=== PATIENT | female | born 1970 | race Caucasian/White ===

== ENCOUNTER → 2016-12-29 | Outpatient (CLI) | payer OTHER ==
[~2016-12-29] MED LIST: ALL180 PO; MULT-506 PO; OMEG10007 PO; TRIA0.1C20 TOP
--- NOTE | 2016-12-30 10:58 | MAMMOGRAPHY REPORT ---
BILATERAL DIGITAL SCREENING MAMMOGRAM TOMOSYNTHESIS WITH CAD: 12/29/2016 CLINICAL HISTORY: Routine screening. Patient has no complaints. TECHNIQUE: Breast tomosynthesis in addition to standard 2D mammography was performed. Current study was also evaluated with a Computer Aided Detection (CAD) system. COMPARISON: Comparison is made to exams dated: 08/24/2015 mammogram, 02/15/2013 mammogram, 02/24/2014 m ammogram, 02/15/2013 ultrasound, 08/28/2011 mammogram, and 06/17/2010 mammogram - [facility]. BREAST COMPOSITION: The tissue of both breasts is heterogeneously dense, which may obscure small ma sses. FINDINGS: There are scattered stable benign-appearing microcalcifications in the breasts. No suspic ious spicular dated or regular mass, architectural distortion or cluster of suspicious microcalcific ations is seen. IMPRESSION: ACR BI-RADS CATEGORY 2: BENIGN There is no mammographic evidence of malignancy. A 1 year screening mammogram is recommended. The p atient will receive written notification of the results. Approximately 10% of breast cancers are not detected with mammography. A negative mammographic repor t should not delay biopsy if a clinically suggestive mass is present. Silvina Victoria M.D. ay/:12/29/2016 17:54:13 Liquor Establishment Manager: Keo DOWELL(Jocelyne)(M), [facility] letter sent: Normal 1/2 BI-RADS Code: ACR BI-RADS Category 2: Benign
== END | disposition home or self-care (01) ==
LOC: C.MAMM 15:25
PROVIDERS: ATTEND Family Medicine
DX: Z12.31 Encounter for screening mammogram for malignant neoplasm of breast (principal)

== ENCOUNTER → 2017-02-02 | Outpatient (CLI) | payer OTHER | END | disposition home or self-care (01) | LOC: C.PAPS 16:53 | PROVIDERS: ATTEND Family Medicine | DX: Z12.4 Encounter for screening for malignant neoplasm of cervix (principal); R87.612 Low grade squamous intraepithelial lesion on cytologic smear of cervix (LGSIL) ==

== ENCOUNTER → 2017-03-31 | Outpatient (CLI) | payer OTHER ==
[2017-03-31 09:33] LABS: BASO % 0.4 %; BASO ABS # 0.02 K/uL (0-0.2); COMPLETE YES; EOS % 1.5 %; HEMATOCRIT 42.3 % (37-47); IG% 0.4 %; LYMPH % 24.4 %; LYMPH ABS # 1.26 K/uL (1.2-3.4); MEAN CELL VOLUME 88.5 fL (80-100); MEAN CORPUSCULAR HEMOGLOBIN 29.9 pg (25-34); MEAN CORPUSCULAR HGB CONC 33.8 g/dl (32-36); MEAN PLATELET VOLUME 9.8 fL (7.4-10.4); MONO % 10.1 %; NEUT % 63.2 %; PLATELET COUNT 323 K/uL (130-400); RED BLOOD COUNT 4.78 M/uL (4.2-5.4); WHITE BLOOD COUNT 5.17 K/uL (4.8-10.8)
[2017-03-31 10:13] LABS: LYME DISEASE AB IGG NEG (NEG); LYME DISEASE AB IGM NEG (NEG)
== END | disposition home or self-care (01) ==
LOC: C.LAB 08:24
PROVIDERS: ATTEND Physician Assistant
DX: R53.81 Other malaise (principal); R53.83 Other fatigue; M79.642 Pain in left hand; W57.XXXA Bitten or stung by nonvenomous insect and other nonvenomous arthropods, initial encounter

== ENCOUNTER → 2017-07-14 | Outpatient (CLI) | payer OTHER ==
[2017-07-17 12:50] LABS: HERPES SIMPLEX CULT SOURCE GENITAL-LABIA MAJORA; HERPES SIMPLEX VIRUS CULT ISOLATED (NOT ISOLATED)
[2017-07-21 10:16] LABS: HSVTYPE2REFLEX ONLY!DON'T ORDR ISOLATED (NOT ISOLATED)
== END | disposition home or self-care (01) ==
LOC: C.LABSPEC 13:48
PROVIDERS: ATTEND Obstetrics & Gynecology
DX: A60.00 Herpesviral infection of urogenital system, unspecified (principal)

== ENCOUNTER 2023-04-15 14:03 | Observation (INO) ==
--- NOTE | 2023-04-15 14:38 | XRay Report ---
XR chest 1V not portable CLINICAL HISTORY: Chest pain, nonspecific TECHNIQUE: Single frontal radiograph of the chest was obtained. Comparison: Comparison is made to chest radiograph 05/13/2020 FINDINGS: No lines and tubes are seen. The cardiomediastinal silhouette is normal. The lungs are clear. No evid ence of pleural effusion or pneumothorax. IMPRESSION: No acute chest disease. ACT 112: Negative or not required by law. Electronically signed by: Chong Vieira M.D. 04/15/2023 2:36 PM
[2023-04-15] MEDS ORDERED: ASPIRIN CHEW 324 MG PO STA (15:01)
[2023-04-15 15:03] LABS: Basophils # (auto) 0.03 K/uL (0-0.2); Basophils % (auto) 0.4 %; Eosinophils # (auto) 0.15 K/uL (0-0.50); Eosinophils % (auto) 2.2 %; Hematocrit (blood only) 42.3 % (37.0-47.0); Hemoglobin 14.9 g/dl (12.0-16.0); Immature Granulocytes # (auto) 0.01 K/uL (0.01-0.20); Immature Granulocytes % (auto) 0.1 %; Lymphocytes # (auto) 1.76 K/uL (1.2-3.4); Lymphocytes % (auto) 25.7 %; Mean Corpuscular Hemoglobin 29.7 pg (25.0-34.0); Mean Corpuscular Hgb Conc 35.2 g/dL (32.0-36.0); Mean Corpuscular Volume 84.4 fL (80.0-100.0); Mean Platelet Volume 10.4 fL (9.4-12.4); Monocytes # (auto) 0.53 K/uL (0.11-0.59); Monocytes % (auto) 7.7 %; Neutrophils # (auto) 4.37 K/uL (1.40-6.50); Neutrophils % (auto) 63.9 %; Platelet Count 317 K/uL (130-400); RDW Standard Deviation 39.9 fL (36.4-46.3); Red Blood Count 5.01 M/uL (4.20-5.40); White Blood Count 6.85 K/ul (4.8-10.8)
--- NOTE | 2023-04-15 15:08 | Emergency Department Note ---
Impression & Plan Chest pain ED Provider Note NAME: WILEY CASTANEDA AGE: 52 SEX: F : 1970 ARRIVES VIA: Walk-In INFORMANT: Patient, ED PROVIDER(S): Manny Hope DO CHIEF COMPLAINT: Chest pain HPI: The patient is a 52-year-old female who presented to the emergency department for an evaluation of chest pain. The patient describes anterior chest pain that goes to her arm and her neck. Patient states that she had intermittent episodes of the symptoms recently. She is scheduled for cardiac catheterization tomorrow with [facility] cardiology. The patient states that she had laboratory studies as an outpatient and was found to have an elevation in her troponin. The patient presented to the emergency [place] today because of ongoing symptoms. She did note that the discomfort was accompanied by diaphoresis. ROS: See above HPI for pertinent positives & negatives. A total of 10 systems reviewed and were otherwise negative. PAST MEDICAL HISTORY: See Below PAST SURGICAL HISTORY: See Below FAMILY HISTORY: See Below SOCIAL HISTORY: See Below HOME MEDICATIONS: See Below ALLERGIES: See Below VITALS: See Below PHYSICAL EXAMINATION: GENERAL: Patient is awake alert in no acute distress patient is resting comfortably and showing no signs of anxiety EYES: The conjunctivae are clear. The pupils are round and reactive. EARS, NOSE, MOUTH AND THROAT: The nose is without any evidence of any deformity. NECK: The neck is nontender and supple. RESPIRATORY: Normal respiratory effort is noted there is no evidence of wheezing rhonchi or rales CARDIOVASCULAR: Regular rate and rhythm noted there no murmurs rubs or gallops normal S1 normal S2. GASTROINTESTINAL: The abdomen is soft. Abdomen is nontender. MUSCULOSKELETAL/EXTREMITIES: There is no evidence of gross deformity full range of motion is noted in the hips and shoulders. SKIN: There is no obvious evidence of any rash. There are no petechiae, pallor or cyanosis noted. NEUROLOGIC: Patient is awake alert and oriented x3 MEDICAL DECISION MAKING: The patient is a 52-year-old female who presented to the emergency department for an evaluation of chest pain. The patient describes anterior chest pain with radiation to the arm. She has had some symptoms ongoing for quite some time but recently started having the more frequently. She had an outpatient troponin which was elevated. She is scheduled for a cardiac stress test tomorrow with [facility] cardiology. The patient presented to the emergency department today because of ongoing symptoms. EKG shows no acute change from previous. Cardiac biomarker was negative. I discussed her condition with the on-call [facility] sales training representative. I also discussed her case with the on-call [facility] hospitalist group. At this time the patient is to be managed with aspirin. She will serial troponins. Likely for cath in the morning. Triage Nursing notes reviewed. Prior medical records reviewed Vital Signs: reviewed and remarkable for no significant abnormalities Differential diagnosis: Cardiac ischemia, aortic dissection, pulmonary embolism, pneumothorax, pneumonia, pericarditis, myocarditis, esophageal rupture, GERD, cholecystitis, pancreatitis, musculoskeletal, as well as other pathologies. ER treatment provided: See below Diagnostics interpreted by me: ECG: EKG was obtained in the emergency department. My interpretation is normal sinus rhythm at 73 bpm. Incomplete right bundle-branch block pattern was noted. There is no acute ST segment abnormalities. This was compared to a tracing from May 13, 2020. No changes were noted Cardiac Monitoring: An order was placed for continuous cardiac monitoring. The monitor shows a rate of 64 bpm with sinus rhythm. Laboratory studies: As stated above and show below. Imaging studies: See below. Radiographic imaging was reviewed by myself Consultation(s): I discussed this case with Dr. Maciel who is on for the [facility] cardiology group. I discussed this case with Davida who is on for the [facility] hospitalist. Past Med/Surg History Medical History Migraine headache Surgical History H/O cosmetic surgery H/O oral surgery S/P skin biopsy Family History Mother Malignant neoplasm of uterus Social History Smoking Status: Never smoker Do You Dip or Chew Tobacco: No; Preferred Language: Uzbek Feels Safe at Home: Yes Allergies Allergies Allergy/AdvReac Type Severity Reaction Status Date / Time No Known Allergies Allergy Unknown Verified 04/08/23 11:25 Home Meds Home Medications Medication Instructions Recorded Confirmed multivitamin 1 tab PO DAILY 09/24/19 04/08/23 Previous Rx's Medication Instructions Recorded valacyclovir 500 mg tablet 500 mg PO BID PRN HSV 5 days #30 06/27/20 tabs sumatriptan succinate 50 mg tablet 50 mg PO Q2H PRN migraine headache 01/23/22 #20 tabs Results & Data (ED) Vital Signs Vital Signs - 24 hr 04/15/23 14:06 04/15/23 15:00 04/15/23 15:03 Temperature 36.6 C Temperature Source Temporal Artery Scan Pulse Rate 99 H 64 Pulse Rate [Right Finger] 70 Pulse Rhythm [Right Finger] Regular Pulse Strength [Right Finger] Normal Respiratory Rate 20 18 Respiratory Effort / Characteristics Non-Labored Non-Labored Respiratory Depth Normal Normal Respiratory Pattern Regular Blood Pressure 117/76 Blood Pressure [Right Arm] 123/88 Blood Pressure Mean 89 Blood Pressure Mean [Right Arm] 99 Blood Pressure Position [Right Arm] Lying Pulse Oximetry 98 98 Oxygen Delivery Method Room Air Room Air Sepsis Recent Fever Within 48 Hours No Sepsis New/Unexplained Change in Mental Status N/A Sepsis Action Taken by Nursing No Action Required Home Medications Current Medication List: was personally reviewed by me Laboratory Data Attestation: I reviewed the patient's lab results. 04/15/23 14:27 04/15/23 14:27 Lab Results 04/15/23 04/15/23 04/15/23 Range/Units 14:27 14:27 14:27 WBC 6.85 (4.8-10.8) K/ul RBC 5.01 (4.20-5.40) M/uL Hgb 14.9 (12.0-16.0) g/dl Hct 42.3 (37.0-47.0) % MCV 84.4 (80.0-100.0) fL MCH 29.7 (25.0-34.0) pg MCHC 35.2 (32.0-36.0) g/dL RDW Std Deviation 39.9 (36.4-46.3) fL RDW Coeff of Tere 13.0 (11.5-14.5) % Plt Count 317 (130-400) K/uL MPV 10.4 (9.4-12.4) fL Immature Gran % (Auto) 0.1 % Neut % (Auto) 63.9 % Lymph % (Auto) 25.7 % [place] % (Auto) 7.7 % Eos % (Auto) 2.2 % Baso % (Auto) 0.4 % Neut # (Auto) 4.37 (1.40-6.50) K/uL Lymph # (Auto) 1.76 (1.2-3.4) K/uL [place] # (Auto) 0.53 (0.11-0.59) K/uL Eos # (Auto) 0.15 (0-0.50) K/uL Baso # (Auto) 0.03 (0-0.2) K/uL Immature Gran # (Auto) 0.01 (0.01-0.20) K/uL PT 10.9 (9.0-12.0) Seconds INR 1.0 (0.9-1.1) APTT 26.6 (21.0-31.0) Seconds PTT Ratio 0.9 Sodium 138 (136-145) mmol/L Potassium 4.0 (3.5-5.1) mmol/L Chloride 106 (98-107) mmol/L Carbon Dioxide 23 (21-32) mmol/L Anion Gap 9 (3-11) BUN 10 (6-23) mg/dl Creatinine 0.96 (0.6-1.2) mg/dl Est Cr Clr Drug Dosing 66.7 ml/min Est GFR ( Amer) 78.8 ml/min Est GFR (Non-Af Amer) 68.0 ml/min BUN/Creatinine Ratio 10.4 (10-20) Glucose 99 (70-99(Fasting)) mg/dl Calcium 9.7 (8.6-10.3) mg/dl Total Bilirubin 0.7 (0.2-1.0) mg/dl AST 21 (13-39) U/L ALT 17 (7-52) U/L Alkaline Phosphatase 80 (34-104) U/L Troponin I High Sens 2.8 (0-14) pg/ml Total Protein 7.8 (6.0-8.3) gm/dl Albumin 4.7 (3.4-5.0) gm/dl Globulin 3.1 (2.5-4.0) gm/dl Albumin/Globulin Ratio 1.5 (0.9-2) SARS-CoV-2, RNA, NAAT (NEGATIVE) 04/15/23 Range/Units 15:14 WBC (4.8-10.8) K/ul RBC (4.20-5.40) M/uL Hgb (12.0-16.0) g/dl Hct (37.0-47.0) % MCV (80.0-100.0) fL MCH (25.0-34.0) pg MCHC (32.0-36.0) g/dL RDW Std Deviation (36.4-46.3) fL RDW Coeff of Tere (11.5-14.5) % Plt Count (130-400) K/uL MPV (9.4-12.4) fL Immature Gran % (Auto) % Neut % (Auto) % Lymph % (Auto) % [place] % (Auto) % Eos % (Auto) % Baso % (Auto) % Neut # (Auto) (1.40-6.50) K/uL Lymph # (Auto) (1.2-3.4) K/uL [place] # (Auto) (0.11-0.59) K/uL Eos # (Auto) (0-0.50) K/uL Baso # (Auto) (0-0.2) K/uL Immature Gran # (Auto) (0.01-0.20) K/uL PT (9.0-12.0) Seconds INR (0.9-1.1) APTT (21.0-31.0) Seconds PTT Ratio Sodium (136-145) mmol/L Potassium (3.5-5.1) mmol/L Chloride (98-107) mmol/L Carbon Dioxide (21-32) mmol/L Anion Gap (3-11) BUN (6-23) mg/dl Creatinine (0.6-1.2) mg/dl Est Cr Clr Drug Dosing ml/min Est GFR ( Amer) ml/min Est GFR (Non-Af Amer) ml/min BUN/Creatinine Ratio (10-20) Glucose (70-99(Fasting)) mg/dl Calcium (8.6-10.3) mg/dl Total Bilirubin (0.2-1.0) mg/dl AST (13-39) U/L ALT (7-52) U/L Alkaline Phosphatase (34-104) U/L Troponin I High Sens (0-14) pg/ml Total Protein (6.0-8.3) gm/dl Albumin (3.4-5.0) gm/dl Globulin (2.5-4.0) gm/dl Albumin/Globulin Ratio (0.9-2) SARS-CoV-2, RNA, NAAT NEGATIVE (NEGATIVE) Administered Medications Discontinued Medications Aspirin (Aspirin Chew 324 Mg) 324 mg PO NOW STA Stop: 04/15/23 15:02 Last Admin: 04/15/23 15:12 Dose: 324 mg Documented By: AP Imaging Data Attestation: I personally reviewed and interpreted this imaging study as follows: My Impression: 1 view chest x-ray was obtained in the emergency department. My interpretation is no free air or definite infiltrate, final report below. Radiologist's Impression: Chest X-Ray 04/15/23 14:10 XR chest 1V not portable CLINICAL HISTORY: Chest pain, nonspecific TECHNIQUE: Single frontal radiograph of the chest was obtained. Comparison: Comparison is made to chest radiograph 05/13/2020 FINDINGS: No lines and tubes are seen. The cardiomediastinal silhouette is normal. The lungs are clear. No evidence of pleural effusion or pneumothorax. IMPRESSION: No acute chest disease. ACT 112: Negative or not required by law. Electronically signed by: Chong Vieira M.D. 04/15/2023 2:36 PM Discharge Plan Visit Data Chief Complaint: Cardiac Assessment Stated Complaint: CHEST PAIN,SOB,JAW PAIN,TINGLY ARMS,CARD. CATH T+1 ED Provider: Manny Hope Discharge Problem: Chest pain Patient Disposition: Being Evaluated by Hospitalist Forms Stand Alone Forms: My [facility] Prescriptions Prescriptions: No Action valacyclovir 500 mg tablet 500 mg PO BID PRN (Reason: HSV) 5 Days Qty: 30 2RF Rx Instructions: Take 1 tablet by mouth twice daily x 5 days for outbreaks sumatriptan succinate 50 mg tablet 50 mg PO Q2H PRN (Reason: migraine headache) Qty: 20 4RF Rx Instructions: Take 1 tablet for migraine relief. May repeat every 2 hours. Max dose of 200mg/day. multivitamin tablet 1 tab PO DAILY Referrals Referrals: Adriana Sullivan DO [Primary Care Provider] -
[2023-04-15 15:12] LABS: Albumin Globulin Ratio 1.5 (0.9-2); Albumin Level 4.7 gm/dl (3.4-5.0); BUN Creatinine Ratio 10.4 (10-20); Bilirubin,Total 0.7 mg/dl (0.2-1.0); Calcium 9.7 mg/dl (8.6-10.3); Creatinine Clr Calc Pharmacy 66.7 ml/min; Est GFR (African American) 78.8 ml/min; Globulin 3.1 gm/dl (2.5-4.0); Total Protein 7.8 gm/dl (6.0-8.3)
[2023-04-15 15:18] LABS: Troponin I High Sensitivity 2.8 pg/ml (0-14)
[2023-04-15 15:21] LABS: Partial Thromboplastin Ratio 0.9; Partial Thromboplastin Time 26.6 Seconds (21.0-31.0); Prothrombin Time 10.9 Seconds (9.0-12.0)
--- NOTE | 2023-04-15 15:49 | Electrocardiogram Report ---
Test Reason : Blood Pressure : / mmHG Vent. Rate : 073 BPM Atrial Rate : 073 BPM P-R Int : 154 ms QRS Dur : 086 ms QT Int : 392 ms P-R-T Axes : 076 075 070 degrees QTc Int : 431 ms Normal sinus rhythm Possible Left atrial enlargement Borderline ECG When compared with ECG of 13-MAY-2020 18:50, No significant change was found Confirmed by Bolivar Barrett ([id number]) on 04/15/2023 3:49:45 PM Referred By: Confirmed By:Bolivar Barrett
--- NOTE | 2023-04-15 16:17 | History & Physical Report ---
Date of Service April 15, 2023 Assessment & Plan (1) Chest pain: Plan: 52 y/o female with dyslipidemia and a family history of heart disease who presents to the ED today with recurrent chest pain. She was originally scheduled for an outpatient cardiac cath tomorrow but developed recurrent symptoms this morning so she came to the ED. Discussed with cardiology who recommended observation overnight before procedure tomorrow. Outpatient EKG and today's EKG personally reviewed and without ischemic changes. - Observe in PCU overnight - Trend troponin Q6 hours x 2 more draws - Repeat EKG in AM and with recurrent symptoms - discussed with pt the need to let nursing know if she has recurrent or changing symptoms overnight - Hold heparin for now but if EKG changes or elevated troponin, will reevaluate - Cardiac cath as scheduled for tomorrow - cardiology has already seen the pt to review the procedure. NPO after midnight - Continue beta-carmen, statin as started by cardio (2) Dyslipidemia: Plan Pt seen and reviewed with collaborating physician, Dr. Myles. Plan of care discussed and as outlined above. Code status: full code DVT Prophylaxis: SCDbello Hirsch PA-C History of Present Illness Chief Complaint: Chest pain Primary Care Provider: Adriana Sullivan DO This is a 52 y/o female with a history of dyslipidemia and migraines who presented to the ED today with recurrence of intermittent chest pain for which she is scheduled to have a cardiac cath tomorrow. Almost two weeks ago, pt started with intermittent substernal to left chest discomfort, which has continued intermittently since it started. She was seen by her PCP for this on 04/07 - EKG was normal. Labs included high sensitivity troponin which was slightly elevated at 25 and a markedly abnormal lipid panel (LDL 240, HDL 53, total 336, TG 216). Pt was diagnosed with dyslipidemia several years ago but only took statin for a few months before stopping and never had this rechecked. Of note, the patient had a routine eye exam in February 2023 and the provider asked if she had a history of high blood pressure or high cholesterol as they noted lipid deposits on her eye exam. Pt was seen by cardiology on 04/09 who recommended she undergo outpatient cardiac cath, which was scheduled for 04/16. However, around 4 am today, the chest pain woke her from sleep. It lasted several minutes then eased off enough for her to fall back to sleep. When she got up this morning and showered, she noted discomfort in her left shoulder. Later in the morning, developed numbness in her jaw with diaphoresis. Pain has continued to be intermittently present in left chest since then. Currently describes discomfort as 3/10. Work-up in the ED with negative troponin and EKG but due to her symptoms, she was referred for admission before cath tomorrow. She does note that her maternal grandparents had heart disease but none in her parents. Allergies Allergy/AdvReac Type Severity Reaction Status Date / Time No Known Allergies Allergy Unknown Verified 04/08/23 11:25 Home Medications Medication Instructions Recorded Confirmed Type multivitamin 1 tab PO DAILY 09/24/19 04/15/23 History sumatriptan succinate 50 mg tablet 50 mg PO Q2H PRN migraine headache 01/23/22 04/15/23 Rx #20 tabs aspirin 81 mg tablet,delayed 81 mg PO DAILY 04/15/23 04/15/23 History release atorvastatin 20 mg tablet 20 mg PO DAILY 04/15/23 04/15/23 History fexofenadine 180 mg tablet 180 mg PO DAILY PRN Ear Pain 04/15/23 04/15/23 History metoprolol succinate 25 mg 12.5 mg PO DAILY 04/15/23 04/15/23 History tablet,extended release 24 hr Past Med/Surg History Medical History Dyslipidemia Migraine headache Surgical History H/O cosmetic surgery H/O oral surgery S/P skin biopsy [place] teeth extracted Family History (Updated 04/15/23 @ 17:10 by Fabby Hirsch PA-C) Mother Malignant neoplasm of uterus Grandmother (Maternal) Heart disease Grandfather (Maternal) Heart disease Grandfather (Paternal) Stroke Grandmother (Paternal) Stroke Social History Smoking Status: Never smoker Do You Dip or Chew Tobacco: No; Preferred Language: Polish Feels Safe at Home: Yes Review of Systems Review of Systems: All systems reviewed & are unremarkable except as noted in HPI & below Constitutional: + sweats; no fever and no chills Eyes: no diplopia Ear, Nose, Mouth, Throat: no nasal congestion and no sore throat Respiratory: no cough, no dyspnea and no wheezing Cardiovascular: as per Subjective / HPI; no palpitations, no lightheadedness, no syncope and no edema Gastrointestinal: no vomiting and no diarrhea/loose stools Genitourinary: no dysuria and no hematuria Musculoskeletal: no joint pain and no muscle weakness Integumentary: no yellowing of the skin Neurologic: no generalized weakness, no dizziness and no headache(s) Psychiatric: no depression and no anxiety Physical Exam Constitutional: well developed and well nourished; no acute distress Eyes: + anicteric sclerae ENMT: external ear and nose normal, oropharynx normal Neck: trachea midline Respiratory: no respiratory distress and no labored breathing Auscultation: lungs clear to auscultation bilaterally; no rales, no rhonchi and no wheezes Cardiovascular: Rate/Rhythm: regular rate and regular rhythm Vessels: posterior tibial pulses present and radial pulses present Extremities: no edema Gastrointestinal (Abdomen): Inspection/Auscultation: normal bowel sounds; abdomen not distended Percussion/Palpation: abdomen soft Musculoskeletal: Head/Neck/Chest: normocephalic, head atraumatic and neck supple Skin: no jaundice Neurologic: moves all extremities; no focal motor deficits and not confused Psychiatric: A+Ox3, euthymic affect Results & Data Results & Data Vital Signs (Past 12 Hours) Vital Signs Temp Pulse Pulse Resp BP BP Pulse Ox 04/15/23 15:03 64 04/15/23 15:00 70 18 123/88 98 04/15/23 14:06 36.6 C 99 H 20 117/76 98 O2 Del Method 04/15/23 15:03 04/15/23 15:00 Room Air 04/15/23 14:06 Room Air Laboratory Results Laboratory Results - last 24 hr 04/15/23 04/15/23 04/15/23 14:27 14:27 14:27 WBC 6.85 RBC 5.01 Hgb 14.9 Hct 42.3 MCV 84.4 MCH 29.7 MCHC 35.2 RDW Std Deviation 39.9 RDW Coeff of Tere 13.0 Plt Count 317 MPV 10.4 Immature Gran % (Auto) 0.1 Neut % (Auto) 63.9 Lymph % (Auto) 25.7 [place] % (Auto) 7.7 Eos % (Auto) 2.2 Baso % (Auto) 0.4 Neut # (Auto) 4.37 Lymph # (Auto) 1.76 [place] # (Auto) 0.53 Eos # (Auto) 0.15 Baso # (Auto) 0.03 Immature Gran # (Auto) 0.01 PT 10.9 INR 1.0 APTT 26.6 PTT Ratio 0.9 Sodium 138 Potassium 4.0 Chloride 106 Carbon Dioxide 23 Anion Gap 9 BUN 10 Creatinine 0.96 Est Cr Clr Drug Dosing 66.7 Est GFR ( Amer) 78.8 Est GFR (Non-Af Amer) 68.0 BUN/Creatinine Ratio 10.4 Glucose 99 Calcium 9.7 Total Bilirubin 0.7 AST 21 ALT 17 Alkaline Phosphatase 80 Troponin I High Sens 2.8 Total Protein 7.8 Albumin 4.7 Globulin 3.1 Albumin/Globulin Ratio 1.5 SARS-CoV-2, RNA, NAAT 04/15/23 15:14 WBC RBC Hgb Hct MCV MCH MCHC RDW Std Deviation RDW Coeff of Tere Plt Count MPV Immature Gran % (Auto) Neut % (Auto) Lymph % (Auto) [place] % (Auto) Eos % (Auto) Baso % (Auto) Neut # (Auto) Lymph # (Auto) [place] # (Auto) Eos # (Auto) Baso # (Auto) Immature Gran # (Auto) PT INR APTT PTT Ratio Sodium Potassium Chloride Carbon Dioxide Anion Gap BUN Creatinine Est Cr Clr Drug Dosing Est GFR ( Amer) Est GFR (Non-Af Amer) BUN/Creatinine Ratio Glucose Calcium Total Bilirubin AST ALT Alkaline Phosphatase Troponin I High Sens Total Protein Albumin Globulin Albumin/Globulin Ratio SARS-CoV-2, RNA, NAAT NEGATIVE Diagnostic Findings Chest X-Ray 04/15/23 14:10 XR chest 1V not portable CLINICAL HISTORY: Chest pain, nonspecific TECHNIQUE: Single frontal radiograph of the chest was obtained. Comparison: Comparison is made to chest radiograph 05/13/2020 FINDINGS: No lines and tubes are seen. The cardiomediastinal silhouette is normal. The lungs are clear. No evidence of pleural effusion or pneumothorax. IMPRESSION: No acute chest disease. Medications Administered Discontinued Medications Aspirin (Aspirin Chew 324 Mg) 324 mg PO NOW STA Stop: 04/15/23 15:02 Last Admin: 04/15/23 15:12 Dose: 324 mg Documented By: AP (1) Chest pain Chest pain type: unspecified Qualified Code(s): R07.9 - Chest pain, unspecified
--- NOTE | 2023-04-15 17:54 | Communication Note ---
Date of Service: April 15, 2023 Patient was seen and examined chart and outpatient records reviewed. See full cardiology consultation 04/09/2023, outpatient Patient is a 52-year-old female with cardiovascular risk factors of marked hyperlipidemia and familial history of ischemic heart disease with recent increased emotional stressors symptoms of left-sided chest pain and shortness of breath. Patient scheduled for diagnostic coronary angiography on 04/16/2023 at [facility]. Today at low-level exertion once again experienced chest tightness and pressure with associated shortness of breath and sought ER evaluation. EKG without acute ischemic changes and troponin negative Exam without focal abnormality Impression: Recurrent chest pain at low-level exertion and patient with cardiovascular risk factors of marked hyperlipidemia familial history. Patient already scheduled for diagnostic coronary angiography. Will observe on telemetry. Anticoagulate with any increase in troponin or recurrence of symptoms at rest Echocardiogram prior to procedure in a.m.
[2023-04-15] MEDS ORDERED: NITROGLYCERIN SL 0.4 MG/TAB TAB SL PRN (18:27)
[2023-04-15] MEDS ORDERED: ACETAMINOPHEN 325 MG TAB PO PRN (18:27)
--- NOTE | 2023-04-16 08:36 | Electrocardiogram Report ---
Test Reason : Blood Pressure : / mmHG Vent. Rate : 063 BPM Atrial Rate : 063 BPM P-R Int : 154 ms QRS Dur : 100 ms QT Int : 438 ms P-R-T Axes : 061 071 065 degrees QTc Int : 448 ms Normal sinus rhythm Normal ECG When compared with ECG of 15-APR-2023 14:17, No significant change was found Confirmed by Adrien Issa ([id number]) on 04/16/2023 8:36:10 AM Referred By: REFERRED SELF Confirmed By:Adrien Issa
[2023-04-16] MEDS ORDERED: ATORVASTATIN 20 MG TAB PO SCH (09:00)
[2023-04-16] MEDS ORDERED: METOPROLOL SUCC 25MG EXT REL TAB PO SCH (09:00)
[2023-04-16] MEDS ORDERED: ASPIRIN 81 MG ECTAB PO SCH (09:00)
--- NOTE | 2023-04-16 12:17 | Pre Anesthesia Assessment ---
Date of Service April 16, 2023 Pre Sedation Assessment Vital Signs Temp Pulse Pulse Pulse Resp BP BP 04/16/23 07:53 36.8 C 71 18 115/78 04/16/23 03:28 36.6 C 68 18 107/69 04/15/23 22:01 67 04/15/23 23:31 36.8 C 67 18 112/70 04/15/23 19:15 04/15/23 18:29 71 04/15/23 18:27 04/15/23 18:33 36.6 C 69 20 143/87 H 04/15/23 18:08 04/15/23 18:00 65 18 122/83 04/15/23 15:03 64 04/15/23 15:00 70 18 123/88 04/15/23 14:06 36.6 C 99 H 20 117/76 Pulse Ox Pulse Ox O2 Del Method O2 Del Method 04/16/23 07:53 99 Room Air 04/16/23 03:28 97 Room Air 04/15/23 22:01 04/15/23 23:31 99 Room Air 04/15/23 19:15 Room Air 04/15/23 18:29 04/15/23 18:27 99 Room Air 04/15/23 18:33 99 Room Air 04/15/23 18:08 Room Air 04/15/23 18:00 98 Room Air 04/15/23 15:03 04/15/23 15:00 98 Room Air 04/15/23 14:06 98 Room Air Cardiovascular RRR, no murmur, no edema + femoral pulses present and + radial pulses present Respiratory normal respiratory effort, lungs clear to auscultation Pre-Sedation Airway Assessment Smoking Status: Never smoker Procedure Planning Contraindications for Sedation: none Current Medications Reviewed: Yes Notes The planned sedation has been discussed with the patient. Informed Consent was obtained. I have identified the patient, determined the appropriateness of sedation and have assessed the patient immediately prior to the procedure. All medicine(s) and interventions are by my order.
[2023-04-16] MEDS ORDERED: MIDAZOLAM HCL 1 MG/ML 2ML VIAL ONE (12:30)
[2023-04-16] MEDS ORDERED: niCARdipine HCL INJ 2.5 MG/ML 10 ML AMP ONE (12:31)
[2023-04-16] MEDS ORDERED: HEPARIN (PORCINE) 1000 UNIT/ML 10 ML (CATH LAB USE ONLY) ONE (12:31)
[2023-04-16] MEDS ORDERED: fentaNYL citrate PF 100 MCG/2 ML VIAL ONE (12:31)
[2023-04-16] MEDS ORDERED: NITROGLYCERIN/D5W 100MCG/ML 20ML SYR ONE (12:32)
[2023-04-16] MEDS ORDERED: SODIUM CHLORIDE 0.9% 1000ML 1,000 ML IV SCH (13:00)
--- NOTE | 2023-04-16 13:04 | Cardiac Catheterization ---
Cardiac Cath Procedure Brief Procedure Date April 16, 2023 Pre-Procedure Diagnosis Pre-Procedure Diagnosis: Cardiothoracic Symptom AUC Score AUC Score: 7 Post-Procedure Diagnosis Post-Procedure Diagnosis: Normal Coronary Arteries Procedure(s) Performed Procedure(s) Performed: Coronary Angiography, Left Heart Cath and LV Angiography Timber Cruiser Osmany Maciel MD Estimated Blood Loss Estimated Blood Loss: <15cc Medication(s) Medication(s): Fentanyl (12.5 mcg IV), Heparin (5000 units IV), Lidocaine 1% (Local infiltration access site), Nicardipine (250 mcg intra-arterial after arterial sheath insertion) and Versed (1 mg IV) Preliminary Findings Impression: Normal coronaries, normal LV systolic function and end-diastolic pressure Recommendations Recommendations: Medical Therapy and/or Counseling Specimens Specimens: None Fluids (cc crystalloids) Fluids (cc crystalloids): 60 Anesthesia Start time: 1240, stop time 1257 Procedural Complication(s) None Disposition Shells Inspector Holding/Recovery
--- NOTE | 2023-04-16 13:08 | Cardiac Catheterization ---
Cardiac Cath Procedure Full Procedure Date April 16, 2023 Pre-Procedure Diagnosis Pre-Procedure Diagnosis: Cardiothoracic Symptom AUC Score AUC Score: 7 Post-Procedure Diagnosis Post-Procedure Diagnosis: Normal Coronary Arteries, Normal LV Systolic Function and Normal Intracardiac Pressures Procedure(s) Performed Procedure(s) Performed: Coronary Angiography, Left Heart Cath and LV Angiography Pipe Fitter Ammonia Osmany Maciel MD Billboard Erector(s) Yanira Austin Estimated Blood Loss Estimated Blood Loss: <15cc Medication(s) Medication(s): Fentanyl (12.5 mcg IV), Heparin (5000 units IV), Lidocaine 1% (Local infiltration access site), Nicardipine (250 mcg intra-arterial after arterial sheath insertion) and Versed (1 mg IV) Summary of Findings Impression: Essentially normal coronaries, normal LV systolic function and end- diastolic pressure Procedure: Left heart catheterization, coronary, LV angiography via right radial access Catheters: 6 [place] long glide sheath, 5 [place] TGR, 5 [place] straight pigtail Complications: None Coronary angiography: Right dominant anatomy Left main: Normal length with 20% ostial taper, physiologic. No calcification Left anterior descending: Type II vessel with thin apical segment. Gives rise to 3 large septal branches and 3 small diagonal branches. There is no disease Left circumflex: Vessel consists of an atrial branch a very large multi branching obtuse marginal and a single posterolateral branch. There is no disease in the left circumflex Right coronary artery: Dominant vessel giving rise to a conus branch at its origin right ventricular branch in its midportion, a modest caliber posterior descending artery and along the AV groove 2 posterior ventricular branches. There is no disease in the right coronary artery. Ostium is notable for a smooth 20% taper. No spasm induced LV angiography: Normal left ventricular size and function EF 60%, no mitral insufficiency, LVEDP 10 Hemodynamics Rest Ao:: 117/69/90 Final Ao: 111/62/80 LV: 113/0/10 Recommendations Recommendations: Medical Therapy and/or Counseling Specimens Specimens: None Radiation Exposure (mGy) 338 Contrast (mls) 70 Fluids (cc crystalloids) Fluids (cc crystalloids): 60 Anesthesia Start time: 1240, stop time 1257 Procedural Complication(s) None Disposition Door Serviceman Holding/Recovery I attest to the content of the Intraoperative Record and any orders documented therein. Any exceptions are noted below. ACC Data: Door Serviceman Cardiac Status Clinical evaluation leading to the procedure 52-year-old female with marked dyslipidemia, familial history of cardiac disease and sudden onset symptoms of exertional chest tightness and shortness of breath at very low levels of exertion. Initial in-hospital evaluation negative for acute injury CAD Presenation: Sx unlikely to be ischemic Heart Failure: No Cardiogenic Shock within 24 Hours: No Cardiac Arrest within 24 Hours: No Imaging Studies Past 6 Months: Yes Stress Studies Past 6 Months: No Standard Exercise Test: No Stress Echocardiogram: No Stress Testing w/SPECT MPI: No Cardiac CTA: No Coronary Anatomy Dominant: Right Left Main (% Stenosis): Ostial (20% physiologic ostial taper) LAD (% Stenosis): Distal (Thin apical segment) D1 (% Stenosis): Normal D2 (% Stenosis): Normal D3 (% Stenosis): Normal Circumflex (% Stenosis): Normal OM1 (% Stenosis): Normal L PL1 (% Stenosis): Normal RCA (% Stenosis): Normal R PDA (% Stenosis): Normal R PL1 (% Stenosis): Normal R PL2 (% Stenosis): Normal Left Ventricular Angiography EF (%): 60 Mitral Regurgitation: None Diagnostic Physicians Name: Osmany Maciel MD Status: Urgent Closure Device Percutaneous Entry Location: Radial Closure Device: Radial Band Recommendations: Medical Therapy and/or Counseling
--- NOTE | 2023-04-16 13:32 | Post Anesthesia Assessment ---
Date of Service April 16, 2023 Post Sedation Assessment Vital Signs Temp Pulse Pulse Pulse Resp BP BP 04/16/23 13:00 68 16 107/71 04/16/23 11:43 36.7 C 66 18 111/72 04/16/23 07:53 36.8 C 71 18 115/78 04/16/23 03:28 36.6 C 68 18 107/69 04/15/23 22:01 67 04/15/23 23:31 36.8 C 67 18 112/70 04/15/23 19:15 04/15/23 18:29 71 04/15/23 18:27 04/15/23 18:33 36.6 C 69 20 143/87 H 04/15/23 18:08 04/15/23 18:00 65 18 122/83 04/15/23 15:03 64 04/15/23 15:00 70 18 123/88 04/15/23 14:06 36.6 C 99 H 20 117/76 Pulse Ox Pulse Ox O2 Del Method O2 Del Method 04/16/23 13:00 99 Room Air 04/16/23 11:43 99 Room Air 04/16/23 07:53 99 Room Air 04/16/23 03:28 97 Room Air 04/15/23 22:01 04/15/23 23:31 99 Room Air 04/15/23 19:15 Room Air 04/15/23 18:29 04/15/23 18:27 99 Room Air 04/15/23 18:33 99 Room Air 04/15/23 18:08 Room Air 04/15/23 18:00 98 Room Air 04/15/23 15:03 04/15/23 15:00 98 Room Air 04/15/23 14:06 98 Room Air Recovery Score Activity: Moves 4 extremities Respiration: Deep Breath/Cough Circulation: +/-20% PreAnes Value Consciousness: Fully Awake Oxygen Saturation: > 92% On Room Air Post Anesthesia Score: 10 Discharge Sedation Level of Care: Phase I Post Sedation Plan On clinical assessment, the patient appears to have tolerated the sedation without complications. Patient is recovering as anticipated. Patient will continue to be monitored by nursing and may be discharged when sedation discharge criteria are met per below protocol. Upon Completions of procedure up to 15 minutes continue every 5 minute vital signs and the P.A.R. score; then discharge to a Phase I or Fast Track to Phase II per the following guidelines: * Discharge Patient to appropriate Phase II area if PAR is 8 or greater or return to pre- procedure baseline. The post - procedure orders will be as directed. * If PAR score is less than 8 or not return to pre-procedure baseline then patient will follow Phase I monitoring till PAR is reached for Phase II. The Phase I may be done in procedure room or may call to secure a Phase I area. * If naloxone or flumazenil are used for reversal, hold in Phase I for continued monitoring from when last reversal dose was given for a minimum of 60 minutes or longer pending the nurse and/or physician discretion of patient condition before discharge to Phase II. Please call the Sedation Physician to re-evaluate and complete post-note for discharge to Phase II area. Do NOT discharge from procedure sedation or Phase 1 until post- sedation evaluation note is complete by procedure /sedation MD Sedation Discharge Instructions to be given to the patient at discharge to home.
--- NOTE | 2023-04-16 14:01 | Cardiology Progress Note ---
Date of Service April 16, 2023 Assessment & Plan (1) Chest pain: (2) Dyslipidemia: Plan Discussed results of coronary angiography. No obstructive disease. Ultimate goals long-term management considerations could include low-dose calcium channel carmen if symptoms persist Discussed indications for treatment of lipids and suspect patient will require higher dosing or more than 1 medication to control. We will continue as currently prescribed Admission and Anticipated Discharge Date Admission Date: April 15, 2023 Subjective Patient seen and examined, chart, medications telemetry reviewed. Patient seen both prior and after coronary angiography Brief chest tightness last night. No cardiac enzyme rise. Cardiac catheterization today without obstructive coronary disease. Procedure Review of Systems Review of Systems: All systems reviewed & are unremarkable except as noted in Subjective Physical Exam Constitutional: WD/WN, vitals as above Eyes: PERRL, conjunctivae normal, anicteric sclerae ENMT: external ear and nose normal, oropharynx normal Neck: trachea midline, no thyromegaly Respiratory: normal respiratory effort, lungs clear to auscultation Cardiovascular: Rate/Rhythm: regular rate and regular rhythm Heart Sounds: normal S1 and normal S2; no gallop and no murmur Palpation: normal PMI Vessels: normal carotid upstroke and radial pulses present; no JVD and no carotid bruit Extremities: no edema Gastrointestinal (Abdomen): normal bowel sounds, soft, nontender, no hep atosplenomegaly Musculoskeletal: no cyanosis or clubbing, extremities motor strength 5/5 Skin: no rashes, warm and dry Neurologic: PERRL, EOMI, accommodation nl, no face palsy, no dysarthria Psychiatric: A+Ox3, euthymic affect Results & Data Vital Signs (Past 12 Hours) Vital Signs Temp Pulse Resp BP Pulse Ox O2 Del Method 04/16/23 07:53 36.8 C 71 18 115/78 99 Room Air 04/16/23 03:28 36.6 C 68 18 107/69 97 Room Air Laboratory Results Laboratory Results - last 24 hr 04/15/23 04/15/23 04/15/23 14:27 14:27 14:27 WBC 6.85 RBC 5.01 Hgb 14.9 Hct 42.3 MCV 84.4 MCH 29.7 MCHC 35.2 RDW Std Deviation 39.9 RDW Coeff of Tere 13.0 Plt Count 317 MPV 10.4 Immature Gran % (Auto) 0.1 Neut % (Auto) 63.9 Lymph % (Auto) 25.7 [place] % (Auto) 7.7 Eos % (Auto) 2.2 Baso % (Auto) 0.4 Neut # (Auto) 4.37 Lymph # (Auto) 1.76 [place] # (Auto) 0.53 Eos # (Auto) 0.15 Baso # (Auto) 0.03 Immature Gran # (Auto) 0.01 PT 10.9 INR 1.0 APTT 26.6 PTT Ratio 0.9 Sodium 138 Potassium 4.0 Chloride 106 Carbon Dioxide 23 Anion Gap 9 BUN 10 Creatinine 0.96 Est Cr Clr Drug Dosing 66.7 Est GFR ( Amer) 78.8 Est GFR (Non-Af Amer) 68.0 BUN/Creatinine Ratio 10.4 Glucose 99 Calcium 9.7 Total Bilirubin 0.7 AST 21 ALT 17 Alkaline Phosphatase 80 Troponin I High Sens 2.8 Total Protein 7.8 Albumin 4.7 Globulin 3.1 Albumin/Globulin Ratio 1.5 SARS-CoV-2, RNA, NAAT 04/15/23 04/15/23 04/16/23 15:14 21:07 02:02 WBC RBC Hgb Hct MCV MCH MCHC RDW Std Deviation RDW Coeff of Tere Plt Count MPV Immature Gran % (Auto) Neut % (Auto) Lymph % (Auto) [place] % (Auto) Eos % (Auto) Baso % (Auto) Neut # (Auto) Lymph # (Auto) [place] # (Auto) Eos # (Auto) Baso # (Auto) Immature Gran # (Auto) PT INR APTT PTT Ratio Sodium Potassium Chloride Carbon Dioxide Anion Gap BUN Creatinine Est Cr Clr Drug Dosing Est GFR ( Amer) Est GFR (Non-Af Amer) BUN/Creatinine Ratio Glucose Calcium Total Bilirubin AST ALT Alkaline Phosphatase Troponin I High Sens < 2.3 < 2.3 Total Protein Albumin Globulin Albumin/Globulin Ratio SARS-CoV-2, RNA, NAAT NEGATIVE Diagnostic Findings Cardiac catheterization 04/16/2023 impression: Essentially normal coronaries, normal LV systolic function and end-diastolic pressure Procedure: Left heart catheterization, coronary, LV angiography via right radial access Catheters: 6 [place] long glide sheath, 5 [place] TGR, 5 [place] straight pigtail Complications: None Coronary angiography: Right dominant anatomy Left main: Normal length with 20% ostial taper, physiologic. No calcification Left anterior descending: Type II vessel with thin apical segment. Gives rise to 3 large septal branches and 3 small diagonal branches. There is no disease Left circumflex: Vessel consists of an atrial branch a very large multi branching obtuse marginal and a single posterolateral branch. There is no disease in the left circumflex Right coronary artery: Dominant vessel giving rise to a conus branch at its origin right ventricular branch in its midportion, a modest caliber posterior descending artery and along the AV groove 2 posterior ventricular branches. There is no disease in the right coronary artery. Ostium is notable for a smooth 20% taper. No spasm induced LV angiography: Normal left ventricular size and function EF 60%, no mitral insufficiency, LVEDP 10 (1) Chest pain Chest pain type: unspecified Qualified Code(s): R07.9 - Chest pain, unspecified
--- NOTE | 2023-04-16 15:52 | Discharge Summary ---
Date of Service April 16, 2023 Admission HPI Per Admitting Provider This is a 52 y/o female with a history of dyslipidemia and migraines who presented to the ED today with recurrence of intermittent chest pain for which she is scheduled to have a cardiac cath tomorrow. Almost two weeks ago, pt started with intermittent substernal to left chest discomfort, which has continued intermittently since it started. She was seen by her PCP for this on 04/07 - EKG was normal. Labs included high sensitivity troponin which was slightly elevated at 25 and a markedly abnormal lipid panel (LDL 240, HDL 53, total 336, TG 216). Pt was diagnosed with dyslipidemia several years ago but only took statin for a few months before stopping and never had this rechecked. Of note, the patient had a routine eye exam in February 2023 and the provider asked if she had a history of high blood pressure or high cholesterol as they noted lipid deposits on her eye exam. Pt was seen by cardiology on 04/09 who recommended she undergo outpatient cardiac cath, which was scheduled for 04/16. However, around 4 am today, the chest pain woke her from sleep. It lasted several minutes then eased off enough for her to fall back to sleep. When she got up this morning and showered, she noted discomfort in her left shoulder. Later in the morning, developed numbness in her jaw with diaphoresis. Pain has continued to be intermittently present in left chest since then. Currently describes discomfort as 3/10. Work-up in the ED with negative troponin and EKG but due to her symptoms, she was referred for admission before cath tomorrow. She does note that her maternal grandparents had heart disease but none in her parents. Admission Exam Per Admitting Provider Constitutional: well developed and well nourished; no acute distress Eyes: + anicteric sclerae ENMT: external ear and nose normal, oropharynx normal Neck: trachea midline Respiratory: no respiratory distress and no labored breathing Auscultation: lungs clear to auscultation bilaterally; no rales, no rhonchi and no wheezes Cardiovascular: Rate/Rhythm: regular rate and regular rhythm Vessels: posterior tibial pulses present and radial pulses present Extremities: no edema B Gastrointestinal (Abdomen): Inspection/Auscultation: normal bowel sounds; abdomen not distended Percussion/Palpation: abdomen soft Musculoskeletal: Head/Neck/Chest: normocephalic, head atraumatic and neck supple Skin: no jaundice Neurologic: moves all extremities; no focal motor deficits and not confused Psychiatric: A+Ox3, euthymic affect Principal Diagnosis Noncardiac chest pain, hyperlipidemia Discharge Exam General: Sitting comfortably in bed, not in distress, on room air HEENT: EOMI, ANCA, MMM Chest: Clear breath sounds bilaterally, no wheezes or crackles CVS: Regular rate and rhythm, normal heart sounds, no murmur Abdomen: Soft, non tender, not distended, normal bowel sounds Neuro: Awake, alert, oriented, conversing well, non focal Extremities: No cyanosis, clubbing or edema Cath site rt wrist noted. Discharge Data Allergies Allergy/AdvReac Type Severity Reaction Status Date / Time No Known Allergies Allergy Unknown Verified 04/08/23 11:25 Consultations 04/15/23 15:56 ED Decision to Admit Stat 04/15/23 18:27 Consult Cardiology Routine Procedures Performed Operation Date: 04/16/23 11:00 Actual Procedures p Cineradiography w/Routine Exam - Osmany Maciel MD s Cath, Left with Cors and Vent - Osmany Maciel MD Ordered Studies 04/16/23 12:15 CL Cath Imgs for PACS use only Routine Laboratory Results WBC 6.85 K/ul (4.8-10.8) 04/15/23 14: RBC 5.01 M/uL (4.20-5.40) 04/15/23 14:27 Hgb 14.9 g/dl (12.0-16.0) 04/15/23 14:27 Hct 42.3 % (37.0-47.0) 04/15/23 14:27 MCV 84.4 fL (80.0-100.0) 04/15/23 14:27 MCH 29.7 pg (25.0-34.0) 04/15/23 14:27 MCHC 35.2 g/dL (32.0-36.0) 04/15/23 14:27 RDW Std Deviation 39.9 fL (36.4-46.3) 04/15/23 14:27 RDW Coeff of Tere 13.0 % (11.5-14.5) 04/15/23 14:27 Plt Count 317 K/uL (130-400) 04/15/23 14:27 MPV 10.4 fL (9.4-12.4) 04/15/23 14:27 Immature Gran % (Auto) 0.1 % 04/15/23 14:27 Neut % (Auto) 63.9 % 04/15/23 14:27 Lymph % (Auto) 25.7 % 04/15/23 14:27 Delta % (Auto) 7.7 % 04/15/23 14:27 Eos % (Auto) 2.2 % 04/15/23 14:27 Baso % (Auto) 0.4 % 04/15/23 14:27 Neut # (Auto) 4.37 K/uL (1.40-6.50) 04/15/23 14:27 Lymph # (Auto) 1.76 K/uL (1.2-3.4) 04/15/23 14:27 Delta # (Auto) 0.53 K/uL (0.11-0.59) 04/15/23 14:27 Eos # (Auto) 0.15 K/uL (0-0.50) 04/15/23 14:27 Baso # (Auto) 0.03 K/uL (0-0.2) 04/15/23 14: Immature Gran # (Auto) 0.01 K/uL (0.01-0.20) 04/15/23 14:27 PT 10.9 Seconds (9.0-12.0) 04/15/23 14:27 INR 1.0 (0.9-1.1) 04/15/23 14:27 APTT 26.6 Seconds (21.0-31.0) 04/15/23 14:27 PTT Ratio 0.9 04/15/23 14:27 Sodium 138 mmol/L (136-145) 04/15/23 14:27 Potassium 4.0 mmol/L (3.5-5.1) 04/15/23 14:27 Chloride 106 mmol/L (98-107) 04/15/23 14:27 Carbon Dioxide 23 mmol/L (21-32) 04/15/23 14:27 Anion Gap 9 (3-11) 04/15/23 14:27 BUN 10 mg/dl (6-23) 04/15/23 14:27 Creatinine 0.96 mg/dl (0.6-1.2) 04/15/23 14:27 Est Cr Clr Drug Dosing 66.7 ml/min 04/15/23 14:27 Est GFR ( Amer) 78.8 ml/min 04/15/23 14:27 Est GFR (Non-Af Amer) 68.0 ml/min 04/15/23 14:27 BUN/Creatinine Ratio 10.4 (10-20) 04/15/23 14:27 Glucose 99 mg/dl (70-99(Fasting)) 04/15/23 14:27 Calcium 9.7 mg/dl (8.6-10.3) 04/15/23 14:27 Total Bilirubin 0.7 mg/dl (0.2-1.0) 04/15/23 14:27 AST 21 U/L (13-39) 04/15/23 14:27 ALT 17 U/L (7-52) 04/15/23 14:27 Alkaline Phosphatase 80 U/L (34-104) 04/15/23 14:27 Troponin I High Sens < 2.3 pg/ml (0-14) 04/16/23 02:02 Total Protein 7.8 gm/dl (6.0-8.3) 04/15/23 14:27 Albumin 4.7 gm/dl (3.4-5.0) 04/15/23 14:27 Globulin 3.1 gm/dl (2.5-4.0) 04/15/23 14:27 Albumin/Globulin Ratio 1.5 (0.9-2) 04/15/23 14:27 SARS-CoV-2, RNA, NAAT NEGATIVE (NEGATIVE) 04/15/23 15:14 Impressions Chest X-Ray 04/15/23 14:10 XR chest 1V not portable CLINICAL HISTORY: Chest pain, nonspecific TECHNIQUE: Single frontal radiograph of the chest was obtained. Comparison: Comparison is made to chest radiograph 05/13/2020 FINDINGS: No lines and tubes are seen. The cardiomediastinal silhouette is normal. The lungs are clear. No evidence of pleural effusion or pneumothorax. IMPRESSION: No acute chest disease. ACT 112: Negative or not required by law. Electronically signed by: Chong Vieira M.D. 04/15/2023 2:36 PM Hospital Course (1) Chest pain: (2) Dyslipidemia: Plan 52 y/o female with dyslipidemia and a family history of heart disease who presents to the ED today with recurrent chest pain. Troponin trend negative. EKG and echo noted. Seen by cardiology and underwent cardiac cath today which was unremarkable-no obstructive disease noted. However does have dyslipidemia with elevated LDL cholesterols. Seen at bedside prior to discharge along with Dr. Maciel. Emphasized on importance of treating her dyslipidemia. Continue current Lipitor, might need higher dose or addition of other medications in future. Also recommended on lifestyle changes. Currently chest pain-free and stable for discharge home. Summary of cardiac cath findings Impression: Essentially normal coronaries, normal LV systolic function and end- diastolic pressure Procedure: Left heart catheterization, coronary, LV angiography via right radial access Catheters: 6 Swazi long glide sheath, 5 Swazi TGR, 5 Swazi straight pigtail Complications: None Coronary angiography: Right dominant anatomy Left main: Normal length with 20% ostial taper, physiologic. No calcification Left anterior descending: Type II vessel with thin apical segment. Gives rise to 3 large septal branches and 3 small diagonal branches. There is no disease Left circumflex: Vessel consists of an atrial branch a very large multi branching obtuse marginal and a single posterolateral branch. There is no disease in the left circumflex Right coronary artery: Dominant vessel giving rise to a conus branch at its origin right ventricular branch in its midportion, a modest caliber posterior descending artery and along the AV groove 2 posterior ventricular branches. There is no disease in the right coronary artery. Ostium is notable for a smooth 20% taper. No spasm induced LV angiography: Normal left ventricular size and function EF 60%, no mitral insufficiency, LVEDP 10 Total Time Total Time Spent Total Time Spent (In Minutes): 32 Discharge Plan Discharge Items Patient Disposition: Home - Self-Care Reason For Visit: CHEST PAIN Discharge Diagnosis: Chest pain Activity: Per Instructions section Non-emergency contact: Primary Care Provider Call non-emergency contact if: you have any medication questions and your symptoms worsen Follow-up/Referrals: Adriana Sullivan DO [Primary Care Provider] - Diet: Heart Healthy Addtl Attending Provider Instructions: ACTIVITY RECOMMENDATIONS: Excess manipulation of the wrist should be avoided for the next 24-48 hours. * No lifting over 2 pounds (approximately a 1/2 gallon of milk) with the utilized arm for 24 hours. * No strenuous activity such as bowling or tennis for 3 days. * Keep the site of the procedure covered with a bandage for 24 hours. *You may shower the day after the procedure. Do not take a tub bath or submerge the puncture site in water for the next 3 days. *Do not operate any motorized equipment for 3 days. SPECIAL CARE INSTRUCTIONS: The site may be slightly bruised and sore following your procedure. Should any of the following occur, contact the Dr. who performed your procedure. 1. Redness/inflammation, swelling, chills, or fever, or colored drainage at procedure site within 3-7 days after your procedure. 2. Coldness, discoloration, ongoing numbness, severe pain, or swelling. Expect mild tingling of hand and tenderness at the puncture site for up to three days. If this persists beyond three days, or other symptoms develop, notify the Dr. who performed your procedure. BLEEDING: If the procedure site on your wrist begins to bleed, do not panic 1. Place 1 or 2 fingers firmly just slightly above the insertion site to stop the bleeding. You may be able to feel your pulse as you hold pressure. 2. Lift your finger after 5 minutes to see if the bleeding has stopped. 3. Once the bleeding has stopped, gently wipe the wrist area clean with a bandage. * If the bleeding from your wrist does not stop after 10 minutes, or if there is a large amount of bleeding or spurting, call 911 (do not drive yourself to the hospital). SKIN IRRITATION: * You may experience some redness and/or swelling in the area where radiation was administered. If any skin irritation occurs, please contact your family physician. FOLLOW UP VISIT: Keep any scheduled doctor appointments. Pending Studies at Discharge: No Stand-Alone Forms: My [facility] [place], Smoking Cessation Medications and DC Order Prescriptions: Continued sumatriptan succinate 50 mg tablet 50 mg PO Q2H PRN (Reason: migraine headache) Qty: 20 4RF Rx Instructions: Take 1 tablet for migraine relief. May repeat every 2 hours. Max dose of 200mg/day. multivitamin tablet 1 tab PO DAILY atorvastatin 20 mg tablet 20 mg PO DAILY fexofenadine 180 mg Tablet 180 mg PO DAILY PRN (Reason: Ear Pain) aspirin 81 mg Tablet,Delayed Release (Dr/Ec) 81 mg PO DAILY metoprolol succinate 25 mg tablet extended release 24 hr 12.5 mg PO DAILY Discharge Orders: Discharge Order (Routine); Ordered 04/16/23 Ordered By: Osmany Maciel Admission Data Admit Date/Time: 04/15/23 16:20 Attending Provider: Anil Spann Admit Provider: Fara Myles Primary Care Provider: Adriana Sullivan Other Providers: Fara Myles ; Osmany Maciel
== END 2023-04-16 18:15 | disposition home or self-care (01) ==
LOC: ED 14:03 → 4W 16:20 → INTOOBSV 16:20 → SUATTDRO 16:20 → 4W 18:08